=== PATIENT | male | born 1985 | race Caucasian/White ===

== ENCOUNTER 2017-07-29 10:33 | Inpatient (IN) | payer OTHER ==
[~2017-07-29] VITALS: Ht 170.2 cm; Wt 76.3 kg
[2017-07-29 10:38] VITALS: Ht 170.2 cm; Wt 76.3 kg
[2017-07-29 11:26] LABS: BASOPHIL % 0.5 % (0-2); PLATELET COUNT 160 x10^3mcL (130-400); RED CELL DISTRIBUTION WIDTH 12.7 % (11.5-14.5)
[2017-07-29 11:30] LABS: CALCIUM 8.9 mg/dL (8.5-10.1); CARBON DIOXIDE 30.9 mmol/L (21-32); CHLORIDE SERUM 105 mmol/L (98-107); CREATININE SERUM 0.8 mg/dL (0.7-1.3); GFR1 > 60 mL/min; GLUCOSE SERUM 96 mg/dL (74-106); POTASSIUM SERUM 4.3 mmol/L (3.5-5.1); SODIUM SERUM 141 mmol/L (136-145)
[2017-07-29 14:47] VITALS: BP 117/57
[2017-07-29 14:51] LABS: T3 TOTAL 0.99 ng/mL
[2017-07-29 14:52] LABS: PHOSPHOROUS 3.5 mg/dL (2.5-4.9)
[2017-07-29 14:53] LABS: CHOLESTEROL/HDL RATIO 2.4
[2017-07-29 14:55] LABS: FREE T4 0.83 ng/dL (0.76-1.46); FREE THYROXINE INDEX 1.5 ug/dL (1.4-4.5); T4(THYROXINE) 4.3 ug/dL (4.7-13.3)
[2017-07-29 17:00] VITALS: BP 113/62
[2017-07-29 20:55] VITALS: BP 112/57
[2017-07-30 03:24] LABS: BASOPHIL % 0.2 % (0-2); CARBON DIOXIDE 27.7 mmol/L (21-32); CHLORIDE SERUM 109 mmol/L (98-107); CREATININE SERUM 0.8 mg/dL (0.7-1.3); GFR1 > 60 mL/min; GLUCOSE SERUM 91 mg/dL (74-106); PLATELET COUNT 148 x10^3mcL (130-400); POTASSIUM SERUM 3.7 mmol/L (3.5-5.1); RED CELL DISTRIBUTION WIDTH 13.1 % (11.5-14.5); SODIUM SERUM 143 mmol/L (136-145)
[2017-07-30 06:00] VITALS: BP 105/53
[2017-07-30 06:49] LABS: microscopic required? NO
[2017-07-30 08:18] LABS: UA SPECIFIC GRAVITY 1.025 (1.005-1.035); urine erythrocyte NEGATIVE (NEGATIVE)
[2017-07-30 09:06] LABS: AMPHETAMINE QUAL UR NONE DETECTED (See below)
[2017-07-30 09:10] VITALS: BP 105/53
[2017-07-30 10:02] VITALS: BP 132/72
== END 2017-07-30 12:10 | disposition home or self-care (01) | DRG 205 ==
LOC: ED 10:33 → DU 13:18
PROVIDERS: Emergency Medicine; Family Medicine
DX: M94.0 Chondrocostal junction syndrome [Tietze] (principal); N17.0 Acute kidney failure with tubular necrosis; Z88.0 Allergy status to penicillin; Z72.89 Other problems related to lifestyle
CPT/HCPCS: 83880; 84439; 85378; J1885; J7030; Q0092